=== PATIENT | female | born 1990 | race African-American/Black ===

== ENCOUNTER 2018-07-22 05:53 | Emergency (ER) | payer OTHER ==
[2018-07-22] MEDS ORDERED: SPRINTEC 35 MCG1 TAB PO (06:09)
[2018-07-22 06:55] LABS: URINE APPEARANCE HAZY; URINE COLOR YELLOW; URINE GLUCOSE NEGATIVE (NEGATIVE); URINE KETONE NEGATIVE (NEGATIVE); URINE PROTEIN(semi-quant) 2+ mg/dL (NEGATIVE)
[2018-07-22 06:56] LABS: URINE BILIRUBIN NEGATIVE (NEGATIVE); URINE BLOOD 250 ery/uL (NEGATIVE); URINE LEUKOCYTE ESTERASE 2+ (NEGATIVE); URINE NITRATE POSITIVE (NEGATIVE); URINE UROBILINOGEN NORMAL (NORMAL); URINE WBC >50 /hpf (0-3)
[2018-07-22] MEDS ORDERED: BACTRIM DS TAB1 EACH PO (07:16)
[2018-07-22] MEDS ORDERED: PYRIDIUM200 M2 PO (07:16)
[2018-07-22 07:30] VITALS: BP 142/98
== END 2018-07-22 07:30 | disposition home or self-care (01) ==
LOC: ED 05:53
PROVIDERS: Physician Assistant
DX: N30.01 Acute cystitis with hematuria (principal); F17.210 Nicotine dependence, cigarettes, uncomplicated